=== PATIENT | male | born 1955 | race African-American/Black ===

== ENCOUNTER 2019-10-07 18:25 | Emergency (ER) | payer OTHER ==
[~2019-10-07] VITALS: Ht 188 cm; Wt 109.1 kg
[~2019-10-07 18:25] MED LIST: ALBU8.5H3 IH; HYDR-1475 PO; LISI-661 PO
[2019-10-07] MEDS ORDERED: LISINOPRIL 10 MG TABLET PO ONE (19:45)
[2019-10-07] MEDS ORDERED: AmLODIPine BESYLATE 5 MG TABLET PO ONE (19:45)
[2019-10-07 20:14] LABS: BASOPHILS % (AUTO) 0.7 % (0.0-2.0); EOSINOPHILS % (AUTO) 3.5 % (1.0-6.0); HEMATOCRIT 45.8 % (41-53); HEMOGLOBIN 15.5 g/dL (13.5-17.5); LYMPHOCYTES # (AUTO) 3.3 K/uL (1.0-4.8); LYMPHOCYTES % (AUTO) 59.6 % (22.0-44.0); MEAN CORPUSCULAR HEMOGLOBIN 33.7 pg (26.0-34.0); MEAN CORPUSCULAR HGB CONC 33.9 G/dL (31.0-37.0); MEAN CORPUSCULAR VOLUME 100 fL (80-100); MONOCYTES # (AUTO) 0.5 K/uL (0.1-1.0); MONOCYTES % (AUTO) 9.1 % (2.0-9.0); NEUTROPHILS # (AUTO) 1.5 K/uL (1.8-7.7); NEUTROPHILS % (AUTO) 27.1 % (40.0-70.0); PLATELET COUNT (AUTO) 217 K/uL (150-450); RED CELL DISTRIBUTION WIDTH 12.9 % (11.5-14.5)
[2019-10-07 20:20] LABS: ANION GAP 3 mmol/L (8-16); CALCIUM, TOTAL 9.2 mg/dL (8.8-10.5); CARBON DIOXIDE 33 mmol/L (22-29); CHLORIDE 105 mmol/L (98-107); CREATININE 1.03 mg/dL (0.60-1.30); GLOMERULAR FILTR. RATE CALC > 60 mL/min (>60); GLUCOSE,RANDOM 104 mg/dL (70-110); POTASSIUM 4.1 mmol/L (3.5-5.1); SODIUM SERUM 141 mmol/L (136-145); UREA NITROGEN, BLOOD 16 mg/dL (7-18)
[2019-10-07 20:26] LABS: ALANINE AMINOTRANSFERASE 40 U/L (12-78); ALBUMIN 4.1 g/dL (3.4-5.0); ALKALINE PHOSPHATASE 68 U/L (46-116); ASPARTATE AMINOTRANSFERASE 19 U/L (15-37); BILIRUBIN,TOTAL 0.2 mg/dL (0.1-1.0); TOTAL PROTEIN, SERUM 7.1 g/dL (6.4-8.2)
[2019-10-07 21:10] VITALS: BP 151/93
== END 2019-10-07 21:33 | disposition home or self-care (01) ==
LOC: EMS 18:28
DX: I10 Essential (primary) hypertension (principal); F17.210 Nicotine dependence, cigarettes, uncomplicated
CPT/HCPCS: 93005

== ENCOUNTER 2022-01-02 06:48 | Emergency (ER) | payer OTHER ==
[~2022-01-02] VITALS: Ht 191.8 cm; Wt 99.0 kg
[~2022-01-02 06:48] MED LIST changes: -HYDR-1475 PO; +HYDR25TA2 PO; -LISI-661 PO; +LISI-893 PO
[2022-01-02 07:16] VITALS: BP 110/78
[2022-01-02] MEDS ORDERED: CLOT30CR TP (07:31)
[2022-01-02] MEDS ORDERED: CEPH-558 PO (07:32)
[2022-01-02] MEDS ORDERED: ATOR40TA71 PO (11:42)
[2022-01-02] MEDS ORDERED: ALBU8HFA IH (11:42)
[2022-01-02] MEDS ORDERED: DULO-114 PO (11:42)
[2022-01-02] MEDS ORDERED: AMLO10TA55 PO (11:42)
[2022-01-02] MEDS ORDERED: GABA800T9 PO (11:42)
[2022-01-02] MEDS ORDERED: CHLO25TA3 PO (11:42)
[2022-01-02] MEDS ORDERED: LISI40TA9 PO (11:42)
== END 2022-01-02 08:05 | disposition home or self-care (01) ==
LOC: EMS 06:52
DX: L03.116 Cellulitis of left lower limb (principal); L03.115 Cellulitis of right lower limb; B35.3 Tinea pedis; I10 Essential (primary) hypertension; F17.210 Nicotine dependence, cigarettes, uncomplicated
CPT/HCPCS: 99283; Z7502

== ENCOUNTER 2022-04-28 09:41 | Emergency (ER) | payer OTHER ==
[~2022-04-28] VITALS: Ht 190.5 cm; Wt 100.0 kg
[~2022-04-28 09:41] MED LIST changes: -ALBU8.5H3 IH; +ALBU8HFA IH; +AMLO10TA55 PO; +ATOR40TA71 PO; +CEPH-558 PO; +CHLO25TA3 PO; +CLOT30CR TP; +DULO-114 PO; +GABA800T9 PO; -HYDR25TA2 PO; -LISI-893 PO; +LISI40TA9 PO
[2022-04-28 10:05] VITALS: BP 133/77
[2022-04-28] MEDS ORDERED: NAPR220C15 PO (10:27)
[2022-04-28] MEDS ORDERED: ASPI81TA87 PO (10:27)
[2022-04-28] MEDS ORDERED: LORA-1370 PO (10:27)
== END 2022-04-28 13:21 | disposition left against medical advice (07) ==
LOC: EMS 09:42
DX: M79.604 Pain in right leg (principal); Z53.21 Procedure and treatment not carried out due to patient leaving prior to being seen by health care provider

== ENCOUNTER 2024-10-19 05:42 | Emergency (ER) | payer OTHER ==
[~2024-10-19] VITALS: Ht 190.5 cm; Wt 98.2 kg
[~2024-10-19 05:42] MED LIST changes: -ALBU8HFA IH; +ASPI81TA87 PO; -CEPH-558 PO; -CLOT30CR TP; -DULO-114 PO; +GABA-1554 PO; -GABA800T9 PO; +LORA-1370 PO; +NAPR220C15 PO
[2024-10-19 05:44] VITALS: TEMP 98.1
[2024-10-19 06:15] VITALS: BP 148/71; PULSE 90; RESP 16; O2SAT 99
[2024-10-19] MEDS ORDERED: CETI-450 PO (06:31)
[2024-10-19] MEDS: CETIRIZINE HCL 10 MG TABLET PO ONE (06:49)
== END 2024-10-19 07:03 | disposition home or self-care (01) ==
LOC: EMS 05:42
DX: H69.93 Unspecified Eustachian tube disorder, bilateral (principal); I10 Essential (primary) hypertension; F17.210 Nicotine dependence, cigarettes, uncomplicated; F12.90 Cannabis use, unspecified, uncomplicated; Z79.82 Long term (current) use of aspirin; Z79.899 Other long term (current) drug therapy; Z72.89 Other problems related to lifestyle
CPT/HCPCS: 99282; Z7502; Z7610

== ENCOUNTER 2024-11-10 08:06 | Emergency (ER) | payer OTHER ==
[~2024-11-10] VITALS: Ht 190.5 cm; Wt 98.2 kg
[~2024-11-10 08:06] MED LIST changes: +CETI-450 PO
[2024-11-10 08:17] VITALS: TEMP 98.1
[2024-11-10 08:43] LABS: COVID AG,FIA SOURCE NASAL SWAB
[2024-11-10 09:36] LABS: SARS-COV2 (COVID) ANTIGEN,FIA Negative (Negative)
[2024-11-10 09:56] VITALS: BP 123/68; PULSE 75; RESP 18; O2SAT 100
== END 2024-11-10 09:57 | disposition home or self-care (01) ==
LOC: EMS 08:10
DX: H83.8X3 Other specified diseases of inner ear, bilateral (principal); F17.210 Nicotine dependence, cigarettes, uncomplicated; I10 Essential (primary) hypertension; Z79.82 Long term (current) use of aspirin; Z79.899 Other long term (current) drug therapy; Z20.822 Contact with and (suspected) exposure to COVID-19
CPT/HCPCS: 99283